=== PATIENT | female | born 1975 | race Caucasian/White ===

== ENCOUNTER 2022-10-21 08:03 | Day surgery (SDC) | payer OTHER ==
[2022-10-21] MEDS ORDERED: LIDOCAINE HCL 2% 100 MG/5 ML IJ ONE (08:04)
[2022-10-21] MEDS ORDERED: Pepcid 20 MG VIAL IV ONE ×2 (08:54→09:00)
[2022-10-21] MEDS ORDERED: Reglan 10 MG/2 ML ONE (08:54)
[2022-10-21] MEDS ORDERED: Reglan 10 MG/2 ML IV ONE (09:00)
[2022-10-21] MEDS ORDERED: DIPRIVAN 200 MG/20 ML IV ONE (09:23)
[2022-10-21] MEDS ORDERED: Lactated Ringers 1,000 ML IV ONE (10:28)
--- NOTE | 2022-10-21 19:22 | XRAY ---
Indication: Bilateral L4-S1 MBB. Intraoperative fluoroscopy provided for 9 seconds. Single digital spot submitted for interpretation demonstrates posterior needle tips projecting over the expected left and right L4-S1 nerve roots. Correlate with intraoperative findings/report.
--- NOTE | 2022-10-21 20:00 | XRAY ---
9 seconds fluoroscopy time in surgery for bilateral L4-S1 MBB.
== END 2022-10-21 09:50 | disposition home or self-care (01) ==
LOC: SDC-PAIN 08:03
PROVIDERS: ATTEND Psychiatry & Neurology Pain Medicine
DX: M47.816 Spondylosis without myelopathy or radiculopathy, lumbar region (principal); E11.9 Type 2 diabetes mellitus without complications; Z79.899 Other long term (current) drug therapy
CPT/HCPCS: 64493; 64494; 72020; 77002; 81025; 82947; J2704

== ENCOUNTER 2022-11-25 07:41 | Day surgery (SDC) | payer OTHER ==
[2022-11-25] MEDS ORDERED: BUPIVACAINE 0.5% VIAL IJ ONE (07:42)
[2022-11-25] MEDS ORDERED: DIPRIVAN 200 MG/20 ML IV ONE (09:12)
--- NOTE | 2022-11-25 09:51 | XRAY ---
Indication: Bilateral L4-S1 MBB. Intraoperative fluoroscopy provided for 15 seconds. Single digital spot image submitted for interpretation demonstrates posterior needle tips projecting over the expected left and right L4-S1 nerve roots. Correlate with intraoperative findings/report.
[2022-11-25] MEDS ORDERED: Lactated Ringers 1,000 ML IV ONE (10:21)
--- NOTE | 2022-11-25 10:50 | XRAY ---
15 seconds of fluoroscopy was used in surgery for a bilateral L4-S1 MBB.
== END 2022-11-25 09:40 | disposition home or self-care (01) ==
LOC: SDC-PAIN 07:41
PROVIDERS: ATTEND Psychiatry & Neurology Pain Medicine
DX: M47.816 Spondylosis without myelopathy or radiculopathy, lumbar region (principal); E11.9 Type 2 diabetes mellitus without complications; Z79.899 Other long term (current) drug therapy
CPT/HCPCS: 64493; 64494; 72020; 77002; 81025; 82947; J2704

== ENCOUNTER 2022-12-30 08:14 | Day surgery (SDC) | payer OTHER ==
[2022-12-30] MEDS ORDERED: LIDOCAINE HCL 1% 50 MG/5 ML VL PF IJ ONE (08:15)
[2022-12-30] MEDS ORDERED: BUPIVACAINE 0.5% VIAL IJ ONE (08:15)
[2022-12-30] MEDS ORDERED: Depo-Medrol 40 MG/ML IM ONE (08:15)
[2022-12-30] MEDS ORDERED: DIPRIVAN 200 MG/20 ML IV ONE (09:32)
--- NOTE | 2022-12-30 11:41 | XRAY ---
Indication: Right L4-S1 RFA. Intraoperative fluoroscopy provided for 26 seconds. 4 digital spot image submitted for interpretation demonstrates posterior needle tips projecting over the expected right L4-S1 nerve roots. Correlate with intraoperative findings/report.
--- NOTE | 2022-12-30 12:52 | XRAY ---
26 seconds fluoroscopy time in surgery for right L4-S1 RFA.
[2022-12-30] MEDS ORDERED: Lactated Ringers 1,000 ML IV ONE (13:15)
== END 2022-12-30 10:10 | disposition home or self-care (01) ==
LOC: SDC-PAIN 08:14
PROVIDERS: ATTEND Psychiatry & Neurology Pain Medicine
DX: M47.816 Spondylosis without myelopathy or radiculopathy, lumbar region (principal); E11.9 Type 2 diabetes mellitus without complications; Z79.899 Other long term (current) drug therapy
CPT/HCPCS: 64635; 64636; 72100; 77002; 81025; 82947; J1030; J2001; J2704

== ENCOUNTER 2023-01-06 08:27 | Day surgery (SDC) | payer OTHER ==
[2023-01-06] MEDS ORDERED: BUPIVACAINE 0.5% VIAL IJ ONE (08:28)
[2023-01-06] MEDS ORDERED: Depo-Medrol 40 MG/ML IM ONE (08:28)
[2023-01-06] MEDS ORDERED: LIDOCAINE HCL 1% 50 MG/5 ML VL PF IJ ONE (08:28)
[2023-01-06] MEDS ORDERED: DIPRIVAN 200 MG/20 ML IV ONE (10:37)
--- NOTE | 2023-01-06 11:53 | XRAY ---
Indication: Left L5-L6-S1 RFA. Intraoperative fluoroscopy provided for 30 seconds. 7 digital spot image submitted for interpretation demonstrates posterior needle tips projecting over the expected left L5/L6/S1 nerve roots. Correlate with intraoperative findings/report.
--- NOTE | 2023-01-06 12:24 | XRAY ---
30 seconds of fluoroscopy was used in surgery for a left L5-L6 and L6-S1 RFA.
[2023-01-06] MEDS ORDERED: Lactated Ringers 1,000 ML IV ONE (13:27)
== END 2023-01-06 11:15 | disposition home or self-care (01) ==
LOC: SDC-PAIN 08:27
PROVIDERS: ATTEND Psychiatry & Neurology Pain Medicine
DX: M47.816 Spondylosis without myelopathy or radiculopathy, lumbar region (principal); E11.9 Type 2 diabetes mellitus without complications; Z79.899 Other long term (current) drug therapy
CPT/HCPCS: 64635; 64636; 72100; 77002; 81025; 82947; J1030; J2001; J2704

== ENCOUNTER 2023-09-29 09:20 | Day surgery (SDC) | payer OTHER ==
[2023-09-29] MEDS ORDERED: Sodium Chloride 0.9(Preservative Free) 10 ML IJ ONE (09:21)
[2023-09-29] MEDS ORDERED: Depo-Medrol 40 MG/ML IM ONE (09:21)
[2023-09-29] MEDS ORDERED: Decadron 4 MG INJ IV ONE (09:21)
[2023-09-29] MEDS ORDERED: LIDOCAINE HCL 1% 50 MG/5 ML VL PF IJ ONE (09:21)
[2023-09-29 10:40] LABS: HCG URINE TEST NEGATIVE (NEGATIVE)
[2023-09-29] MEDS ORDERED: D50W 50 ml Abboject IV SCH (11:00)
[2023-09-29] MEDS ORDERED: DIPRIVAN 200 MG/20 ML IV ONE ×2 (11:49→12:06)
[2023-09-29] MEDS ORDERED: Xylocaine-Mpf 2% 5 Ml Vial ONE (11:49)
--- NOTE | 2023-09-29 13:28 | XRAY ---
Indication: Lumbar EDWARDO. Intraoperative fluoroscopy provided for 20 seconds. 3 digital spot images submitted for interpretation demonstrates posterior needle tip projecting posterior to lumbosacral junction. Small amount of contrast injected for needle tip placement. Correlate with intraoperative findings/report.
--- NOTE | 2023-09-29 13:28 | XRAY ---
Indication: Bilateral piriformis injection. Intraoperative fluoroscopy provided for 16 seconds. 2 digital spot images submitted for interpretation demonstrates posterior needle tip projecting over left and right piriformis. Small amount of contrast injected for both needle tip placement. Correlate with intraoperative findings/report.
--- NOTE | 2023-09-29 13:30 | XRAY ---
16 seconds of fluoroscopy was used in surgery for a bilateral piriformis injection.
--- NOTE | 2023-09-29 13:31 | XRAY ---
20 seconds of fluoroscopy was used in surgery for a lumbar EDWARDO.
== END 2023-09-29 12:38 | disposition home or self-care (01) ==
LOC: SDC-PAIN 09:20
PROVIDERS: ATTEND Psychiatry & Neurology Pain Medicine
DX: M79.18 Myalgia, other site (principal); M54.16 Radiculopathy, lumbar region; E11.9 Type 2 diabetes mellitus without complications; Z79.899 Other long term (current) drug therapy
CPT/HCPCS: 20552; 62323; 72100; 72170; 77002; 77003; 81025; 82947; J1030; J1100; J2001; J2704; Q9966

== ENCOUNTER 2024-01-19 09:09 | Day surgery (SDC) | payer OTHER ==
[2024-01-19] MEDS ORDERED: Depo-Medrol 40 MG/ML IM ONE (09:10)
[2024-01-19] MEDS ORDERED: BUPIVACAINE 0.5% VIAL IJ ONE (09:10)
[2024-01-19 09:47] LABS: HCG URINE TEST NEGATIVE (NEGATIVE)
[2024-01-19] MEDS ORDERED: DIPRIVAN 200 MG/20 ML IV ONE (10:55)
[2024-01-19] MEDS ORDERED: Lactated Ringers 1,000 ML IV ONE (11:52)
--- NOTE | 2024-01-19 13:06 | XRAY ---
Indication: Bilateral SI joint injection. Intraoperative fluoroscopy provided for 24 seconds. 4 digital spot images submitted for interpretation demonstrates posterior needle tip projecting over left and right SI joint. Correlate with intraoperative findings/report.
--- NOTE | 2024-01-19 13:50 | XRAY ---
24 seconds of fluoroscopy was used in surgery for a bilateral sacroiliac joint injection.
== END 2024-01-19 11:35 | disposition home or self-care (01) ==
LOC: SDC-PAIN 09:09
PROVIDERS: ATTEND Psychiatry & Neurology Pain Medicine
DX: M46.1 Sacroiliitis, not elsewhere classified (principal); E11.9 Type 2 diabetes mellitus without complications
CPT/HCPCS: 27096; 72202; 77002; 81025; 82947; J1030; J2704; G0260

== ENCOUNTER 2024-02-23 08:57 | Day surgery (SDC) | payer OTHER ==
[2024-02-23] MEDS ORDERED: LIDOCAINE HCL 2% 100 MG/5 ML IJ ONE (08:58)
[2024-02-23] MEDS ORDERED: Depo-Medrol 40 MG/ML IM ONE (08:58)
[2024-02-23 09:08] LABS: HCG URINE TEST NEGATIVE (NEGATIVE)
[2024-02-23] MEDS ORDERED: DIPRIVAN 200 MG/20 ML IV ONE (10:19)
[2024-02-23] MEDS ORDERED: Lactated Ringers 1,000 ML IV ONE (11:41)
--- NOTE | 2024-02-23 11:42 | XRAY ---
Indication: Bilateral L2-L4 MBB. Intraoperative fluoroscopy provided for 11 seconds. Single digital spot image submitted for interpretation demonstrates posterior needle tips projecting over expected left and right L2-L4 nerve roots. Correlate with intraoperative findings/report.
--- NOTE | 2024-02-23 11:44 | XRAY ---
11 seconds of fluoroscopy was used in surgery for a bilateral L2-L4 MBB.
== END 2024-02-23 10:55 | disposition home or self-care (01) ==
LOC: SDC-PAIN 08:57
PROVIDERS: ATTEND Psychiatry & Neurology Pain Medicine
DX: M47.816 Spondylosis without myelopathy or radiculopathy, lumbar region (principal); E11.9 Type 2 diabetes mellitus without complications
CPT/HCPCS: 64493; 64494; 72020; 77002; 81025; 82947; J1010; J2704; J1030

== ENCOUNTER 2024-03-15 15:28 | Day surgery (SDC) | payer OTHER ==
[2024-03-15] MEDS ORDERED: Depo-Medrol 40 MG/ML IM ONE (15:29)
[2024-03-15] MEDS ORDERED: Sodium Chloride 0.9(Preservative Free) 10 ML IJ ONE (15:29)
[2024-03-15] MEDS ORDERED: LIDOCAINE HCL 1% 50 MG/5 ML VL PF IJ ONE (15:29)
[2024-03-15 17:08] LABS: HCG URINE TEST NEGATIVE (NEGATIVE)
[2024-03-15] MEDS ORDERED: Lactated Ringers 1,000 ML IV ONE (18:12)
--- NOTE | 2024-03-15 21:01 | XRAY ---
Indication: Lumbar EDWARDO Intraoperative fluoroscopy provided for 12 seconds. 2 digital spot image submitted for interpretation demonstrates posterior needle tip projecting posterior to lumbosacral interspace. Small amount of contrast injected for needle tip placement. Correlate with intraoperative findings/report.
--- NOTE | 2024-03-16 08:57 | XRAY ---
12 seconds of fluoroscopy was used in surgery for a lumbar EDWARDO.
== END 2024-03-15 18:45 | disposition home or self-care (01) ==
LOC: SDC-PAIN 15:28
PROVIDERS: ATTEND Psychiatry & Neurology Pain Medicine
DX: M54.16 Radiculopathy, lumbar region (principal); E11.9 Type 2 diabetes mellitus without complications
CPT/HCPCS: 62323; 72100; 77002; 81025; 82947; J1010; J2001; Q9966

== ENCOUNTER 2024-09-21 07:35 | Day surgery (SDC) | payer OTHER ==
[2024-09-21] MEDS ORDERED: Depo-Medrol 40 MG/ML IM ONE (07:36)
[2024-09-21] MEDS ORDERED: BUPIVACAINE 0.5% VIAL IJ ONE (07:36)
[2024-09-21 08:04] LABS: HCG URINE TEST NEGATIVE (NEGATIVE)
[2024-09-21] MEDS ORDERED: DIPRIVAN 200 MG/20 ML IV ONE (09:00)
--- NOTE | 2024-09-21 09:54 | XRAY ---
Indication: Right hip and greater trochanter bursa injection. Intraoperative fluoroscopy provided for 16 seconds. 2 digital spot image submitted for interpretation demonstrates needle tips projecting lateral to right femur neck and greater trochanter. Small amount of contrast injected for both needle tip placement. Correlate with intraoperative findings/report.
--- NOTE | 2024-09-21 10:42 | XRAY ---
16 seconds of fluoroscopy was used in surgery for a right intra-articular hip and greater trochanteric bursa injection.
== END 2024-09-21 09:28 | disposition home or self-care (01) ==
LOC: SDC-PAIN 07:35
PROVIDERS: ATTEND Psychiatry & Neurology Pain Medicine
DX: M16.11 Unilateral primary osteoarthritis, right hip (principal); M70.61 Trochanteric bursitis, right hip; E11.9 Type 2 diabetes mellitus without complications
CPT/HCPCS: 20610; 73502; 77002; 81025; 82947; J2704; Q9966